=== PATIENT | female | born 1980 | race Hispanic/Latino ===

== ENCOUNTER 2017-04-30 08:47 | Inpatient (IN) | payer OTHER ==
[2017-04-30] VITALS (7 sets, daily range): BP systolic 100–120; BP diastolic 54–66
[~2017-04-30] VITALS: Ht 185.4 cm; Wt 88.2 kg
[~2017-04-30 08:47] MED LIST: ENDOCET 5-3251 EACH PO; IBUPROFEN800 MG PO; NOHOMEMEDS; PRENATAL TABLE1 EAC3 PO
[2017-04-30 10:04] LABS: EOSINOPHIL (%) 0.7 % (0-5); HEMATOCRIT 33.5 % (36.0-46.0); IMMATURE GRANULOCYTE (%) 0.7 % (0.0-0.7); INSTRUMENT ABS NEUTROPHIL CT 3.9 K/uL; LYMPHOCYTE COUNT 1.5 K/uL (1.0-2.8); MCH 29.5 PG (29.0-34.0); MCHC 33.7 G/DL (30.0-36.0); MCV 87.5 FL (83-99); MEAN PLAT.VOLUME 11.6 uM^3 (9.5-12.4); MONOCYTE (%) 7.8 % (3-12); MONOCYTE COUNT 0.5 K/uL (0-0.8); NEUTROPHIL (%) 65.3 % (45-76); NEUTROPHIL COUNT 3.9 K/uL (1.8-6.4); PLATELET COUNT 168 K/uL (156-360); RBC DIS.WIDTH-CV 13.6 % (11.8-14.6); RBC DIS.WIDTH-SD 42.5 % (39-53); RED BLOOD COUNT 3.83 M/uL (3.80-5.20)
[2017-05-01 03:05] VITALS: BP 110/51
[2017-05-01 07:09] VITALS: BP 114/65
[2017-05-01 07:19] LABS: EOSINOPHIL (%) 0.5 % (0-5); EOSINOPHIL COUNT 0.1 K/uL (0-0.3); HEMATOCRIT 32.3 % (36.0-46.0); IMMATURE GRANULOCYTE (%) 0.4 % (0.0-0.7); LYMPHOCYTE COUNT 2.4 K/uL (1.0-2.8); MCH 28.4 PG (29.0-34.0); MCHC 32.2 G/DL (30.0-36.0); MCV 88.3 FL (83-99); MEAN PLAT.VOLUME 12.3 uM^3 (9.5-12.4); MONOCYTE (%) 7.2 % (3-12); MONOCYTE COUNT 0.7 K/uL (0-0.8); NEUTROPHIL (%) 68.1 % (45-76); PLATELET COUNT 168 K/uL (156-360); RBC DIS.WIDTH-CV 13.4 % (11.8-14.6); RBC DIS.WIDTH-SD 43.5 % (39-53); RED BLOOD COUNT 3.66 M/uL (3.80-5.20); WHITE BLOOD COUNT 10.3 K/uL (4.1-10.2)
[2017-05-01 11:32] VITALS: BP 110/53
[2017-05-01 15:11] VITALS: BP 111/52
[2017-05-01 19:30] VITALS: BP 117/64
[2017-05-02 00:02] VITALS: BP 99/53
[2017-05-02 02:33] VITALS: BP 111/51
[2017-05-02 07:06] VITALS: BP 103/67
[2017-05-02 10:37] VITALS: BP 100/51
[2017-05-02 14:38] VITALS: BP 110/59
[2017-05-02] MEDS ORDERED: DOCUSATE SODIU100 MG PO (17:07)
[2017-05-02] MEDS ORDERED: IBUPROFEN800 MG PO (17:07)
[2017-05-02] MEDS ORDERED: ENDOCET 5-3251 EACH PO (17:07)
== END 2017-05-02 19:40 | disposition home or self-care (01) | DRG 766 ==
LOC: 2SOUTH 08:47 → 2WEST 09:04 → 2SOUTH 15:17 → 2WEST 05-02 19:40
PROVIDERS: Obstetrics & Gynecology Obstetrics
DX: O34.211 Maternal care for low transverse scar from previous cesarean delivery (principal); Z30.2 Encounter for sterilization; Z37.0 Single live birth; Z3A.39 39 weeks gestation of pregnancy
CPT/HCPCS: 85025; 86900; 86901; J0690; J1100; J1885; J2274; J2405; J7050; J7120